=== PATIENT | female | born 1995 | race African-American/Black ===

== ENCOUNTER 2017-11-02 19:53 | Emergency (ER) | payer OTHER ==
[2017-11-02] MEDS ORDERED: IBUPROFEN 800 MG TAB PO STA (20:11)
--- NOTE | 2017-11-02 20:22 | ED ---
General Adult HPI - General Chief complaint: Fever Stated complaint: fever; cough, congestion Source: patient Mode of arrival: ambulatory Limitations: no limitations - History of Present Illness Initial comments: Dictation was produced using [employer] dictation software. please excuse any grammatical, word or spelling errors. Chief Complaint: 22-year-old -Japanese female with no significant past medical history presents with fever 2 weeks. History of Present Illness: Patient states that her symptoms initially began as stuffy nose. Her symptoms at that time resolved after several days. She was a symptomatically for several days when recently her fever came back. She states that her symptoms this time are nasal stuffiness, cough. Patient has any chest pain. No dysuria. Is on control. She denies being . No other urinary symptoms. No belly pain no nausea, vomiting. The ROS documented in this emergency department record has been reviewed and confirmed by me. Those systems with pertinent positive or negative responses have been documented in the HPI. All other systems are other negative and/or noncontributory. - Related Data Previous Rx's Medication Instructions Recorded Azithromycin [Zithromax Z-pack] 0 mg PO DIRECTED #6 tab 11/02/17 Allergies Allergy/AdvReac Type Severity Reaction Status Date / Time No Known Allergies Allergy Verified 11/02/17 19:58 Review of Systems ROS Statement: Those systems with pertinent positive or pertinent negative responses have been documented in the HPI. ROS Other: All systems not noted in ROS Statement are negative. Past Medical History Past Medical History: No Reported History History of Any Multi-Drug Resistant Organisms: None Reported Past Surgical History: No Surgical Hx Reported Past Psychological History: No Psychological Hx Reported Smoking Status: Never smoker Past Alcohol Use History: None Reported Past Drug Use History: None Reported General Exam - General Exam Comments Initial Comments: PHYSICAL EXAM: General Impression: Alert and oriented x3, not in acute distress HEENT: Normocephalic atraumatic, extra-ocular movements intact, pupils equal and reactive to light bilaterally, mucous membranes moist. Cardiovascular: Heart regular rate and rhythm, S1&S2 audible, no murmurs, rubs or gallops Chest: Mild egophony to the right posterior lung akers Abdomen: Bowel sounds present, abdomen soft, non-tender, non-distended, no organomegaly Musculoskeletal: Pulses present and equal in all extremities, no peripheral edema Motor: Power 5/5 bilaterally, no focal deficits noted Neurological: CN II-XII grossly intact, no focal motor or sensory deficits noted Skin: Intact with no visualized rashes Psych: Normal affect and mood Limitations: no limitations Course Vital Signs 11/02/17 19:57 Temperature 102.7 F H Pulse Rate 125 H Respiratory 18 Rate Blood Pressure 127/62 O2 Sat by Pulse 98 Oximetry Medical Decision Making - Medical Decision Making ED course: 22-year-old -Japanese female presents with fever 2 weeks. Vital signs upon arrival shows heart rate of 125, temperature 102.7. Patient is a control for . Patient given 800 mg of Motrin. Chest x-ray and urinalysis was obtained. Urinalysis is negative. Chest x-ray shows findings suspicious for left lower lobe pneumonia. Given clinical presentation, imaging findings are consistent with physical exam findings and clinical presentation. He course of azithromycin. She is told to follow-up with primary care physician upon discharge. Patient understandable and agreeable to plan. - Lab Data Lab Results 11/02/17 11/02/17 Range/Units 20:31 20:31 Urine Color Yellow Urine Appearance Clear (Clear) Urine pH 5.0 (5.0-8.0) Ur Specific [place] 1.013 (1.001-1.035) Urine Protein Negative (Negative) Urine Glucose (UA) Negative (Negative) Urine Ketones Negative (Negative) Urine Blood Negative (Negative) Urine Nitrite Negative (Negative) Urine Bilirubin Negative (Negative) Urine Urobilinogen <2.0 (<2.0) mg/dL Ur Leukocyte Esterase Negative (Negative) Urine HCG, Qual Not Detected (Not Detectd) Disposition Clinical Impression: Pneumonia Disposition: HOME SELF-CARE Instructions: Pneumonia (ED) Prescriptions: Azithromycin [Zithromax Z-pack] 0 mg PO DIRECTED #6 tab Is patient prescribed a controlled substance at d/c from ED?: No Referrals: Nonstaff,Physician [Primary Care Provider] - 1-2 days Time of Disposition: 21:28
[2017-11-02 20:42] LABS: Appearance,Urine Clear (Clear); Bilirubin,Urine Negative (Negative); Blood,Urine Negative (Negative); Color,Urine Yellow; Glucose,Urine (UA) Negative (Negative); Ketones,Urine Negative (Negative); Leukocyte Esterase,Urine Negative (Negative); Nitrite,Urine Negative (Negative); Protein,Urine Negative (Negative); Specific Gravity,Urine 1.013 (1.001-1.035); Urobilinogen,Urine <2.0 mg/dL (<2.0)
--- NOTE | 2017-11-02 21:22 | XR ---
EXAMINATION TYPE: XR chest 2V DATE OF EXAM: 11/02/2017 COMPARISON: None HISTORY: 22-year-old female fever and pain TECHNIQUE: Frontal and lateral views FINDINGS: The cardiomediastinal silhouette, aorta, and pulmonary vasculature are within normal limits. Focal ro unded opacity developing in the lower left lung. No pleural effusion. IMPRESSION: Findings suspicious for developing pneumonia at the left lower lung.
[2017-11-02 21:52] VITALS: BP 133/67; PULSE 109; RESP 16; TEMP 100.7
== END 2017-11-02 21:59 | disposition home or self-care (01) ==
LOC: EC 19:53
DX: J18.9 Pneumonia, unspecified organism (principal)
CPT/HCPCS: 71046; 81003; 81025; 99283